=== PATIENT | female | born 1960 ===

== ENCOUNTER 2024-02-28 05:00 | Outpatient (CLI) | payer MEDICARE, OTHER, SELFPAY ==
[2024-02-28 15:07] LABS: Abs Immature Grans 0.02 10^3/uL (0.0-0.06); Absolute Basophil Count 0.04 10^3/uL (0.0-0.2); Absolute Eosinophil Count 0.01 10^3/uL (0.0-0.7); Absolute Lymphocyte Count 2.37 10^3/uL (1.2-3.4); Absolute Monocyte Count 0.45 10^3/uL (0.1-0.8); Absolute Neutrophil Count 4.51 10^3/uL (1.2-6.7); Basophils % 0.5 %; Eosinophils % 0.1 %; HCT 43.5 % (36.0-46.0); HGB 14.7 g/dL (11.2-15.7); Immature Grans % 0.3 %; MCH 31.3 pg (27.0-33.0); MCHC 33.8 % (32.0-36.0); MCV 93 fL (80-95); MPV 11.2 fL (8.0-11.0); Monocytes % 6.1 %; Platelet Count 162 10^3/uL (130-400); RDW 11.9 % (11.7-14.6); RDW-SD 40.7 fL
== END 2024-02-28 05:01 | disposition home or self-care (01) ==
LOC: LBO 05:00
PROVIDERS: Visit Provider Obstetrics & Gynecology
DX: Z01.818 Encounter for other preprocedural examination (principal)
CPT/HCPCS: 36415; 86850; 86900; 86901; 85025

== ENCOUNTER 2024-03-01 06:12 | Day surgery (SDC) | payer MEDICARE, OTHER, SELFPAY ==
[2024-03-01] VITALS (24 sets, daily range): BP systolic 112–136; BP diastolic 73–93; PULSE 53–64; RESP 12–16; TEMP 36.4–36.6; O2SAT 91–96; BMI 32.3
[2024-03-01] MEDS: Normal Saline 1,000 ML 125 ML IV (06:44)
--- NOTE | 2024-03-01 07:22 | W.ANESPRE ---
General Info Date of Service Date Performed: 03/01/24 Height: 5 ft 6 in Weight: 90.9 kg Body Mass Index (BMI): 32.3 Surgical Procedure: Operation Date: 03/01/24 07:40 Proposed Procedure Side Surgeon p Dilation & Curettage with Hysteroscopy, Myosure Bertha Bee DO Meds Allergies and Home Medications Allergies Allergy/AdvReac Type Severity Reaction Status Date / Time No Known Allergies Allergy Verified 03/01/24 06:22 Home Medication Medication Instructions Recorded clobetasol 0.05 % topical cream 1 applic topical DAILY PRN 02/13/24 Current Visit Medications: Current Medications Generic Name Dose Route Start Last Admin Trade Name Freq PRN Reason Stop Dose Admin Sodium Chloride 1,000 mls @ 125 mls/hr 03/01/24 06:00 03/01/24 06:44 Saline 1000ml Bag IV 03/01/24 16:00 125 mls/hr INFUSION ESTELA Administration IV Miscellaneous Supplies 1 each 03/01/24 06:00 Iv Access IV 03/30/24 23:59 DIRECTED ESTELA Sodium Chloride 0 ml 03/01/24 06:00 Normal Saline Flush 10 Ml Syr IV 03/30/24 23:59 PRN PRN Sodium Chloride 0 ml 03/01/24 06:00 Normal Saline 10 Ml Vial IJ 03/30/24 23:59 DIRECTED PRN Sterile Water 0 ml 03/01/24 06:00 Water,Injection,Sterile 10 Ml Vial IJ 03/30/24 23:59 DIRECTED PRN PFSH Active Problems Active Problems: Problem Status Onset Code Postmenopausal Z78.0 Thickened endometrium R93.89 Postmenopausal bleeding N95.0 Medical History Medical History Family history of breast cancer Surgical History Surgical History Hx of colonoscopy History of section Tobacco Smoking/Tobacco Use Status: Former Tobacco Use Alcohol Alcohol Intake: current Alcohol intake frequency: 0-2 drinks per day Substance Use Substance use: Occasionally Substance use type: marijuana Vital Signs and Lab Results Vital Signs Most Recent Vital Signs in EMR: Most Recent Vital Signs Temp Pulse Resp BP Pulse Ox 36.6 C 63 16 112/77 96 03/01/24 06:40 03/01/24 06:40 03/01/24 06:40 03/01/24 06:46 03/01/24 06:40 Lab Results Blood Type / Crossmatch: Antibody Screen NEGATIVE 02/28/24 Complete Blood Count: White Blood Count 7.40 10^3/uL (4.4-10.8) 02/28/24 14:55 Red Blood Count 4.70 10^6/uL (3.93-5.22) 02/28/24 14:55 Hemoglobin 14.7 g/dL (11.2-15.7) 02/28/24 14:55 Hematocrit 43.5 % (36.0-46.0) 02/28/24 14:55 Platelet Count 162 10^3/uL (130-400) 02/28/24 14:55 Complete Metabolic Panel: No Data to Display Liver Function Panel: No Data to Display Coagulation Panel: No Data to Display Cardiac Panel: No Data to Display Arterial Blood Gas: No Data to Display Venous Blood Gas: No Data to Display Pancreas Panel: No Data to Display Thyroid Panel: No Data to Display Infectious Disease: No Data to Display Blood Cultures: No Data to Display Toxicology Panel: No Data to Display Anesthesia Assessment and Plan Anesthesia History Personal History: No History of Anesthesia Complications Family History: No Family History of Anesthesia Complications Exercise Tolerance Exercise Tolerance: Metabolic Equivalents>4 Pertinent Negatives Pertinent Negatives: No Symptoms of GERD Cardiac & Pulmonary Exam Cardiac Exam: Normal S1/S2 Heart Sounds Pulmonary Exam: Clear Bilateral Breath Sounds Implantable Cardiac Device Does patient have a Pacemaker or an ICD?: No Airway Exam Known Difficult Airway: No Mallampati Class: 1 Mouth Opening: Normal (> 3cm) Thyromental Distance: Greater than 3 cm Neck Range of Motion: Full ROM Neck Circumference: Normal Teeth Condition: Normal Dentition ASA Classification ASA Score: ASA 2 Emergency Case?: No NPO Status NPO Status: NPO Clears >2 hours, Solids >8 hours Anesthesia Plan Resuscitation Status: Full Code Anesthesia Technique: General Anesthesia Airway Planned: LMA Monitors Used: Standard Monitors
--- NOTE | 2024-03-01 08:15 | ENDOMET_PTH ---
PATIENT: Ivana Daniels LOC: [facility] U#:[id number] AGE/SX: 64/F ROOM: RE03/01/[address]: Bertha Bee DO : 1960 BED: DIS: 03/01/2024 SPEC #: [id number] RECD: 03/01/24 13:32 STATUS: GERA REQ #: [id number] PONCHO: 03/01/24 08:[address]: Bertha Bee DEPT: Surgical Specimen RECD BY: Lorenza Marquis ENTERED: 03/01/24 13:37 SP TYPE: Endomet OTHR DR: Unknown,Unknown Tissues: 1 - ENDOMETRIUM BX/CURRETTE 2 - ENDOCERVICAL BX/CURRETTE 3 - CERVICAL BIOPSY Procedures: GROSS AND MICRO LEVEL 4 Comments: [id number]
--- NOTE | 2024-03-01 08:28 | W.PM.OP ---
Date of service: 03/01/24 Time of Service: 08:28 Operative Note Operative Note DATE OF PROCEDURE: 03/01/24 PRE-OP DIAGNOSIS: Thickened endometrium Same with endometrial polyp PROCEDURE: Hysteroscopy, fractional dilation and curettage, MyoSure removal of endometrial polyp SURGEON: Bertha Bee ANESTHESIA TYPE: MAC Refer to Anesthesia Record ESTIMATED BLOOD LOSS: 5 PATHOLOGY: other (1. Endometrial polyp 2. Endocervical curettage 3. Endometrial curettage) COMPLICATIONS: None Patient was transported to: same day Indications: Thickened endometrium Findings: 4 cm endometrial polyp with base at the fundus, removed. Otherwise smooth regular endometrial cavity. Procedure Description: After full informed consent was obtained, patient was taken the operating suite with an IV running. She was placed in the dorsal supine position and general anesthesia administered via monitored anesthesia care. She had pneumatic compression stockings for DVT prophylaxis. She was placed in the modified dorsolithotomy position in [facility]. She was prepped and draped in the usual sterile fashion and a timeout was held. A speculum was inserted into the vaginal vault and cervix identified. Cervix was grasped with a single-tooth tenaculum and cervical os dilated to the point that a 5 mm hysteroscope could be passed without difficulty. With instillation of normal saline, the endometrial cavity was inspected. The lining of the uterus itself was smooth and regular, however there was a 4 cm endometrial polyp with the base at the fundus. In light of this, the MyoSure device was used to remove the polyp with hemostasis achieved at the base. The hysteroscope portion of the procedure was terminated with a 200 cc fluid deficit. Fractional curettage was then performed with gentle curetting of the endocervical canal, followed by the endometrial canal. All tissue will be sent for pathology. At this point the procedure was terminated, tenaculum removed, speculum removed. Tenaculum sites were hemostatic. Complications: None apparent Fluids: 500 cc of crystalloid per anesthesia and 200 cc normal saline fluid deficit at the time of hysteroscopy. Pathology: 1. Endometrial polyp 2. Endocervical curetting 3. Endometrial curetting EBL 5 mL
--- NOTE | 2024-03-01 09:17 | W.ANESPOSTOP ---
Postoperative Evaluation Date, Time and Location Date Performed: 03/01/24 Time Performed: 09:17 Patient Location: Day Surgery Unit Vital Signs Most Recent Imported Vital Signs: Most Recent Vital Signs Temp Pulse Resp BP Pulse Ox 36.4 C L 56 L 16 116/84 95 03/01/24 09:08 03/01/24 09:08 03/01/24 09:08 03/01/24 09:08 03/01/24 09:08 Pain Score Most Recent Pain Score: Most Recent Pain Score Pain Level 0 03/01/24 09:08 Assessment Mental Status: Awake (Alert & Oriented to Patient Baseline) Airway and Respiratory Function: Patent airway with normal (patient baseline) respiratory exam Cardiovascular Function: Hemodynamically Stable Hydration Status: Adequately Hydrated Nausea & Vomiting: No Nausea or Vomiting Pain: Pt. Denies Any Pain Peripheral Nerve Block: Patient did not receive a nerve block
== END 2024-03-01 09:50 | disposition home or self-care (01) ==
PROVIDERS: Visit Provider Obstetrics & Gynecology
PROC: 0UDB8ZZ Extraction of Endometrium, Via Natural or Artificial Opening Endoscopic (ICD-10-PCS; CPT 58558; principal; 2024-03-01 07:30)
DX: N95.0 Postmenopausal bleeding (principal); N84.0 Polyp of corpus uteri
CPT/HCPCS: 58563; 88305; J0131; J1100; J1885; J2001; J2250; J2405; J2704; J3010

== ENCOUNTER 2025-03-25 10:15 | Outpatient (REF) | payer MEDICARE, SELFPAY ==
--- NOTE | 2025-03-25 10:00 | PAPFT_PTH ---
PATIENT: Ivana Daniels LOC: [facility] U#:[id number] AGE/SX: 65/F ROOM: RE03/25/[address]: Bertha Bee DO : 1960 BED: DIS: 03/25/2025 SPEC #: [id number] RECD: 03/25/25 13:09 STATUS: GERA REQ #: [id number] PONCHO: 03/25/25 10:[address]: Bertha Bee DEPT: [facility] Cytology RECD BY: Lorenza Marquis ENTERED: 03/25/25 13:09 SP TYPE: PAPFT OTHR DR: Unknown,Unknown Tissues: 1 - CX/ENDOCX FOR PAP SMEARS Procedures: PAP THIN PREP/[facility] Screening HPV DNA PROBE Comments: [id number] (HPV 16 & 18/45)
== END 2025-03-25 10:16 | disposition home or self-care (01) ==
LOC: LBN 10:15
PROVIDERS: Visit Provider Obstetrics & Gynecology
DX: Z11.51 Encounter for screening for human papillomavirus (HPV) (principal); Z01.419 Encounter for gynecological examination (general) (routine) without abnormal findings
CPT/HCPCS: 88142; 87624